=== PATIENT | female | born 1990 | race Caucasian/White ===

== ENCOUNTER → 2016-10-06 | Outpatient (REF) | payer OTHER | LOC: M SFHCWAGY 14:11 | PROVIDERS: ATTEND Nurse Practitioner Women's Health | DX: Z12.4 Encounter for screening for malignant neoplasm of cervix (principal); R87.612 Low grade squamous intraepithelial lesion on cytologic smear of cervix (LGSIL) ==

== ENCOUNTER → 2016-10-22 | Outpatient (CLI) | payer OTHER ==
[2016-10-22 17:43] LABS: ALBUMIN 3.9 GM/DL (3.2-5.2); ALBUMIN/GLOBULIN RATIO 1.44 (1.00-1.93); ALKALINE PHOSPHATASE 72 U/L (45-117); ALT/SGPT 17 U/L (12-78); ANION GAP 10 MEQ/L (8-16); AST/SGOT 11 U/L (15-37); BILIRUBIN,TOTAL 0.9 MG/DL (0.2-1.0); BLOOD UREA NITROGEN 14 MG/DL (7-18); CALCIUM LEVEL 8.2 MG/DL (8.5-10.1); CARBON DIOXIDE LEVEL 24 MEQ/L (21-32); CHLORIDE LEVEL 110 MEQ/L (98-107); CHOLESTEROL LEVEL 168 MG/DL (<200); CREATININE FOR GFR 0.94 MG/DL (0.55-1.02); GLOMERULAR FILTRATION RATE > 60.0 (>60); GLUCOSE, FASTING 92 MG/DL (70-105); MAGNESIUM LEVEL 2.3 MG/DL (1.8-2.4); POTASSIUM SERUM 3.9 MEQ/L (3.5-5.1); SODIUM LEVEL 144 MEQ/L (136-145); TOTAL PROTEIN 6.6 GM/DL (6.4-8.2); TRIGLYCERIDES LEVEL 69 MG/DL (<150)
[2016-10-23 11:15] LABS: FOLLICLE STIMULATING HORMONE 2.7 mIU/mL; LUTEINIZING HORMONE 4.6 mIU/mL
== END ==
LOC: M ADAMS 09:37
PROVIDERS: ATTEND Physician Assistant
DX: R03.0 Elevated blood-pressure reading, without diagnosis of hypertension (principal); L70.0 Acne vulgaris; Z68.29 Body mass index [BMI] 29.0-29.9, adult; E55.9 Vitamin D deficiency, unspecified

== ENCOUNTER → 2017-02-06 | Outpatient (CLI) | payer OTHER ==
--- NOTE | 2017-02-06 11:36 | REP ---
Clinical: Abnormal uterine bleeding. Comparison: 06/24/2010 . Technique: Transabdominal pelvic ultrasound followed by transvaginal examination for better evaluation of the endometrium and adnexa. Findings: Bladder is unremarkable and measures 11.4 x 10.4 x 7.8 cm . Normal anteverted uterus measures 8.2 x 3.4 x 5.4 centimeters. The endometrial complex measures 6 mm thickness and an 8 x 3 x 7 mm oval echogenic focus may represent endometrial polyp. Bilateral ovaries are normal in appearance. Right ovary measures 3.8 x 2.1 x 3.4 cm. Left ovary measures 3.6 x 1.2 x 2.8 cm. No pelvic fluid or adnexal mass lesion . Impression: 1. cannot exclude endometrial polyp. 2. Otherwise normal pelvic ultrasound. Signed by Roger Aparicio MD 02/06/2017 11:27 A
== END ==
LOC: M WHC 09:58
PROVIDERS: ATTEND Nurse Practitioner Women's Health
DX: N93.9 Abnormal uterine and vaginal bleeding, unspecified (principal)

== ENCOUNTER 2017-04-03 15:00 | Emergency (ER) | payer OTHER ==
[2017-04-03 17:37] LABS: D-DIMER QUANT 307.8 ng/ml (<500)
== END 2017-04-03 18:16 | disposition home or self-care (01) ==
LOC: M ED 15:00
DX: M54.12 Radiculopathy, cervical region (principal); R00.1 Bradycardia, unspecified; Z79.3 Long term (current) use of hormonal contraceptives
CPT/HCPCS: 93005

== ENCOUNTER 2017-04-27 10:44 | Day surgery (SDC) | payer OTHER ==
[2017-04-27 11:15] LABS: HEMATOCRIT 44.4 % (36.0-47.0); HEMOGLOBIN 15.3 g/dl (12.0-16.0); MEAN CORPUSCULAR HEMOGLOBIN 29.4 pg (27.0-33.0); MEAN CORPUSCULAR HGB CONC 34.5 g/dl (32.0-36.5); MEAN CORPUSCULAR VOLUME 85.4 fl (80.0-96.0); PLATELET COUNT, AUTOMATED 183 10^3/uL (150-450); RED CELL DISTRIBUTION WIDTH 12.5 % (11.5-14.5); WHITE BLOOD COUNT 6.1 10^3/uL (4.0-10.0)
[2017-04-27 11:23] LABS: CONTROL LINE HCG INT CTR LINE PRESENT; HCG, SERUM QUALITATIVE NEGATIVE (NEGATIVE)
[2017-04-27 11:32] LABS: ANION GAP 6 MEQ/L (8-16); BLOOD UREA NITROGEN 11 MG/DL (7-18); CALCIUM LEVEL 8.8 MG/DL (8.5-10.1); CARBON DIOXIDE LEVEL 29 MEQ/L (21-32); CHLORIDE LEVEL 106 MEQ/L (98-107); CREATININE FOR GFR 0.95 MG/DL (0.55-1.30); GLOMERULAR FILTRATION RATE > 60.0 (>60); GLUCOSE, FASTING 84 MG/DL (70-100); POTASSIUM SERUM 4.3 MEQ/L (3.5-5.1); SODIUM LEVEL 141 MEQ/L (136-145)
[2017-04-27] MEDS: LR 1,000 ML IV ×2 (11:34→15:00)
[2017-04-27] MEDS ORDERED: MIDAZOLAM INJ 2 MG/2 ML VIAL (J2250) As Ordered (12:27)
[2017-04-27] MEDS ORDERED: METOCLOPRAMIDE INJ 10MG/2ML VIAL (J2765) As Ordered ×2 (12:27→15:55)
[2017-04-27] MEDS ORDERED: fentaNYL 100 MCG/2 ML INJECTION (J3010) As Ordered (12:27)
[2017-04-27] MEDS ORDERED: PROPOFOL 200 MG/20 ML VIAL As Ordered (12:27)
[2017-04-27] MEDS ORDERED: LIDOCAINE 2% INJ 100 MG/5 ML SDV (FOR ANES.) As Ordered (12:27)
[2017-04-27] MEDS ORDERED: ONDANSETRON 4MG/2ML VIAL (J2405) As Ordered ×2 (12:27→14:00)
[2017-04-27] MEDS ORDERED: KETOROLAC 60 MG/2 ML VIAL (J1885) As Ordered (13:29)
[2017-04-27] MEDS ORDERED: NORCO, ANEXSIA 5/325MG TABLET (HYDROcodone/ACETAMINOPHEN) As Ordered (14:00)
[2017-04-27] MEDS: NORCO, ANEXSIA 5/325MG TABLET (HYDROcodone/ACETAMINOPHEN) PO ×2 (14:00→14:31)
[2017-04-27] MEDS: ONDANSETRON 4MG/2ML VIAL (J2405) IV (14:09)
[2017-04-27] MEDS ORDERED: PERCOCET 5MG/325MG TAB PO (14:15)
[2017-04-27] MEDS: METOCLOPRAMIDE INJ 10MG/2ML VIAL (J2765) IV ×2 (16:10→16:28)
[2017-04-27] MEDS ORDERED: KETOROLAC 30 MG/ML VIAL (J1885) IV (20:00)
== END 2017-04-27 16:30 | disposition home or self-care (01) ==
LOC: M SDC 10:44
DX: N92.6 Irregular menstruation, unspecified (principal); N84.0 Polyp of corpus uteri; I10 Essential (primary) hypertension; Z79.899 Other long term (current) drug therapy
CPT/HCPCS: 58558

== ENCOUNTER → 2018-03-10 | Outpatient (REF) | payer BC, OTHER ==
[~2018-03-10] MED LIST: CYCL10TA PO; METO1TAB32 PO; NIKK1TAB PO
== END ==
LOC: M LAB REF 09:40
PROVIDERS: ATTEND Physician Assistant Medical
DX: J02.9 Acute pharyngitis, unspecified (principal)

== ENCOUNTER → 2018-03-28 | Outpatient (REF) | payer BC ==
[2018-03-28 22:15] LABS: CHLAMYDIA DNA AMPLIFICATION NEGATIVE (NEGATIVE); GC DNA AMPLIFICATION NEGATIVE (NEGATIVE)
== END ==
LOC: M SFHCWAGY 15:14
PROVIDERS: ATTEND Nurse Practitioner Women's Health
DX: Z12.4 Encounter for screening for malignant neoplasm of cervix (principal); Z11.3 Encounter for screening for infections with a predominantly sexual mode of transmission; Z79.3 Long term (current) use of hormonal contraceptives
CPT/HCPCS: 87491; 87591; G0123

== ENCOUNTER → 2018-12-01 | Outpatient (REF) | payer BC | LOC: M LAB REF 08:46 | PROVIDERS: ATTEND Physician Assistant Medical | DX: J02.9 Acute pharyngitis, unspecified (principal) ==

== ENCOUNTER → 2019-01-26 | Outpatient (REF) | payer BC | LOC: M LAB REF 10:38 | PROVIDERS: ATTEND Physician Assistant Medical | DX: J02.9 Acute pharyngitis, unspecified (principal) ==

== ENCOUNTER → 2019-03-16 | Outpatient (CLI) | payer BC ==
[2019-03-16 19:04] LABS: BASO # 0.1 10^3/uL (0.0-0.2); BASO % 0.8 % (0.0-1.0); EOS # 0.1 10^3/uL (0.0-0.5); EOS % 1.9 % (0.0-3.0); HEMATOCRIT 44.1 % (36.0-47.0); HEMOGLOBIN 14.7 g/dl (12.0-15.5); LYMPH # 2.6 10^3/uL (1.5-5.0); LYMPH % 42.9 % (24.0-44.0); MEAN CORPUSCULAR HEMOGLOBIN 29.5 pg (27.0-33.0); MEAN CORPUSCULAR HGB CONC 33.3 g/dl (32.0-36.5); MEAN CORPUSCULAR VOLUME 88.4 fl (80.0-96.0); MONO # 0.4 10^3/uL (0.0-0.8); MONO % 6.9 % (0.0-5.0); NEUTROPHILS # 2.8 10^3/uL (1.5-8.5); NEUTROPHILS % 47.3 % (36.0-66.0); PLATELET COUNT, AUTOMATED 196 10^3/uL (150-450); RED BLOOD COUNT 4.99 10^6/uL (4.00-5.40); WHITE BLOOD COUNT 5.9 10^3/uL (4.0-10.0)
[2019-03-16 19:34] LABS: ALBUMIN 4.1 GM/DL (3.2-5.2); ALT/SGPT 21 U/L (12-78); AMYLASE 36 U/L (25-115); BILIRUBIN,TOTAL 0.8 MG/DL (0.2-1.0); BLOOD UREA NITROGEN 10 MG/DL (7-18); CALCIUM LEVEL 8.5 MG/DL (8.5-10.1); CARBON DIOXIDE LEVEL 24 MEQ/L (21-32); CHLORIDE LEVEL 109 MEQ/L (98-107); CREATININE FOR GFR 0.84 MG/DL (0.55-1.30); FREE T4 0.96 NG/DL (0.76-1.46); GLOMERULAR FILTRATION RATE > 60.0 (>60); GLUCOSE, FASTING 79 MG/DL (70-100); LIPASE 71 U/L (73-393); POTASSIUM SERUM 3.9 MEQ/L (3.5-5.1); SODIUM LEVEL 141 MEQ/L (136-145); TOTAL PROTEIN 7.5 GM/DL (6.4-8.2)
== END ==
LOC: M WUC 13:08
PROVIDERS: ATTEND Physician Assistant
DX: R10.9 Unspecified abdominal pain (principal); R19.7 Diarrhea, unspecified; R35.0 Frequency of micturition

== ENCOUNTER → 2019-03-28 | Outpatient (REF) | payer BC ==
[2019-03-28 19:56] LABS: BASO % 0.4 % (0.0-1.0); EOS # 0.1 10^3/uL (0.0-0.5); EOS % 1.2 % (0.0-3.0); HEMATOCRIT 43.4 % (36.0-47.0); HEMOGLOBIN 14.1 g/dl (12.0-15.5); LYMPH # 2.6 10^3/uL (1.5-5.0); MEAN CORPUSCULAR HEMOGLOBIN 29.3 pg (27.0-33.0); MEAN CORPUSCULAR HGB CONC 32.5 g/dl (32.0-36.5); MONO # 0.5 10^3/uL (0.0-0.8); MONO % 6.8 % (0.0-5.0); NEUTROPHILS # 3.5 10^3/uL (1.5-8.5); NEUTROPHILS % 52.3 % (36.0-66.0); PLATELET COUNT, AUTOMATED 191 10^3/uL (150-450); RED BLOOD COUNT 4.82 10^6/uL (4.00-5.40); WHITE BLOOD COUNT 6.8 10^3/uL (4.0-10.0)
[2019-03-28 20:20] LABS: ERYTHROCYTE SEDIMENTATION RATE 3 mm/hr (0-20)
== END ==
LOC: M SFHCADAM 15:23
PROVIDERS: ATTEND Physician Assistant
DX: A41.9 Sepsis, unspecified organism (principal); N30.00 Acute cystitis without hematuria

== ENCOUNTER → 2019-03-28 | Outpatient (REF) | payer BC ==
[2019-03-28 20:12] LABS: FREE T4 0.78 NG/DL (0.76-1.46)
[2019-03-28 20:14] LABS: THYROID PEROXIDASE ANTIBODY > 1300.0 U/ML (<60.0)
== END ==
LOC: M LABDRWAD 19:21
PROVIDERS: ATTEND Internal Medicine Endocrinology, Diabetes & Metabolism
DX: E03.9 Hypothyroidism, unspecified (principal)

== ENCOUNTER → 2019-05-27 | Outpatient (REF) | payer BC ==
[2019-05-27 18:07] LABS: APPEARANCE, URINE CLEAR (CLEAR); BACTERIA, URINE AUTO NEGATIVE (NEGATIVE); BILIRUBIN, URINE AUTO NEGATIVE (NEGATIVE); BLOOD, URINE BLOOD NEGATIVE (NEGATIVE); COLOR, URINE YELLOW (YELLOW); GLUCOSE, URINE (UA) AUTO NEGATIVE (NEGATIVE); KETONE, URINE AUTO TRACE mg/dL (NEGATIVE); LEUKOCYTE ESTERASE, URINE AUTO NEGATIVE (NEGATIVE); MUCUS, URINE SMALL (NEGATIVE); NITRITE, URINE AUTO NEGATIVE (NEGATIVE); PROTEIN, URINE AUTO NEGATIVE (NEGATIVE); RBC, URINE AUTO 1 /HPF (0-3); SPECIFIC GRAVITY URINE AUTO 1.015 (1.002-1.035); SQUAMOUS EPITHELIAL CELL UR AU 3 /HPF (0-6); UROBILINOGEN, URINE AUTO 0.2 mg/dL (0.0-2.0); WBC, URINE AUTO 1 /HPF (0-3)
== END ==
LOC: M PLALAB 15:03
PROVIDERS: ATTEND Obstetrics & Gynecology
DX: N30.00 Acute cystitis without hematuria (principal)

== ENCOUNTER → 2019-06-02 | Outpatient (REF) | payer BC | LOC: M SFHCWAGY 17:15 | PROVIDERS: ATTEND Obstetrics & Gynecology | DX: N30.00 Acute cystitis without hematuria (principal) ==

== ENCOUNTER → 2019-06-02 | Outpatient (CLI) | payer BC ==
[2019-06-02 18:27] LABS: FREE T4 1.41 NG/DL (0.76-1.46); THYROID STIMULATING HORMONE 0.028 uIU/ML (0.358-3.740)
== END ==
LOC: M PLALAB 15:27
PROVIDERS: ATTEND Internal Medicine Endocrinology, Diabetes & Metabolism
DX: E03.9 Hypothyroidism, unspecified (principal)

== ENCOUNTER → 2019-08-18 | Outpatient (CLI) | payer BC ==
[~2019-08-18] MED LIST changes: +CYCL-707 PO; -CYCL10TA PO
--- NOTE | 2019-08-20 06:21 | REP ---
Clinical: Abnormal menstrual cycles. Technique: Transabdominal pelvic ultrasound followed by transvaginal examination for better evaluation of the endometrium and adnexa. Findings: Bladder is normal and measures 9.6 x 9.3 x 6.5 cm. Normal anteverted uterus measures 7.1 x 3.5 x 4.7 cm. Endometrial complex measures 5 mm thickness. No discrete uterine or endometrial abnormalities are identified. The bilateral ovaries are normal in appearance and vascularity. Right ovary measures 3.4 x 2.1 x 2.4 cm. Left ovary measures 3.6 x 1.5 x 2.5 cm. No pelvic free fluid or adnexal mass lesion. Impression: Normal pelvic ultrasound.
== END ==
LOC: M WHC 07:00
PROVIDERS: ATTEND Nurse Practitioner Women's Health
DX: N92.1 Excessive and frequent menstruation with irregular cycle (principal); N94.6 Dysmenorrhea, unspecified

== ENCOUNTER → 2019-08-27 | Outpatient (REF) | payer BC | LOC: M LAB REF 17:52 | PROVIDERS: ATTEND Dermatology | DX: L92.9 Granulomatous disorder of the skin and subcutaneous tissue, unspecified (principal) ==

== ENCOUNTER → 2019-09-04 | Outpatient (CLI) | payer BC ==
[2019-09-04 12:38] LABS: FREE T4 1.13 NG/DL (0.76-1.46); THYROID STIMULATING HORMONE 6.39 uIU/ML (0.358-3.740)
== END ==
LOC: M LAB 11:23
PROVIDERS: ATTEND Internal Medicine Endocrinology, Diabetes & Metabolism
DX: E03.9 Hypothyroidism, unspecified (principal)

== ENCOUNTER → 2019-12-04 | Outpatient (CLI) | payer BC ==
[2019-12-04 09:46] LABS: FREE T4 1.37 NG/DL (0.76-1.46); THYROID STIMULATING HORMONE 1.09 uIU/ML (0.358-3.740)
== END ==
LOC: M LAB 08:27
PROVIDERS: ATTEND Nurse Practitioner Family
DX: E06.3 Autoimmune thyroiditis (principal)

== ENCOUNTER → 2020-03-09 | Outpatient (REF) | payer BC ==
[2020-03-09 16:57] LABS: ALBUMIN 3.3 GM/DL (3.2-5.2); ALT/SGPT 15 U/L (12-78); BILIRUBIN,TOTAL 0.3 MG/DL (0.2-1.0); BLOOD UREA NITROGEN 10 MG/DL (7-18); CALCIUM LEVEL 8.5 MG/DL (8.5-10.1); CARBON DIOXIDE LEVEL 27 MEQ/L (21-32); CHLORIDE LEVEL 108 MEQ/L (98-107); CREATININE FOR GFR 0.83 MG/DL (0.55-1.30); GLOMERULAR FILTRATION RATE > 60.0 (>60); GLUCOSE, FASTING 100 MG/DL (70-100); POTASSIUM SERUM 4.1 MEQ/L (3.5-5.1); SODIUM LEVEL 141 MEQ/L (136-145); TOTAL 25(OH) VITAMIN D 19.5 NG/ML (30.0-100.0); TOTAL PROTEIN 6.4 GM/DL (6.4-8.2)
== END ==
LOC: M SFHCADAM 13:45
PROVIDERS: ATTEND Physician Assistant
DX: E03.9 Hypothyroidism, unspecified (principal); I10 Essential (primary) hypertension; E55.9 Vitamin D deficiency, unspecified

== ENCOUNTER → 2020-04-01 | Outpatient (REF) | payer BC ==
[2020-04-01 17:29] LABS: FREE T4 1.31 NG/DL (0.76-1.46); THYROID STIMULATING HORMONE 1.59 uIU/ML (0.358-3.740)
== END ==
LOC: M LABDRWAD 16:16
PROVIDERS: ATTEND Nurse Practitioner Family
DX: E06.3 Autoimmune thyroiditis (principal)

== ENCOUNTER → 2020-04-13 | Outpatient (REF) | payer BC | LOC: M SFHCWAGY 17:19 | PROVIDERS: ATTEND Nurse Practitioner Women's Health | DX: Z12.4 Encounter for screening for malignant neoplasm of cervix (principal); Z01.419 Encounter for gynecological examination (general) (routine) without abnormal findings ==

== ENCOUNTER → 2020-06-10 | Outpatient (CLI) | payer BC ==
--- NOTE | 2020-06-15 10:55 | REP ---
INDICATION: N93.9 ABNORMAL UTERINE BLEEDING COMPARISON: 08/18/2019 TECHNIQUE: Transabdominal pelvic ultrasound followed by transvaginal examination for better evaluation of the endometrium and adnexa with color Doppler evaluation of the ovaries. FINDINGS: Bladder is under distended. Normal anteverted uterus measures 7.0 x 3.9 x 4.1. The endometrial complex measures 4.0 mm thickness. No discrete uterine or endometrial abnormalities are appreciated. Bilateral ovaries are normal in appearance and vascularity without evidence for torsion. Right ovary measures 2.5 x 1.6 x 1.9 cm; R I = 0.60. Left ovary measures 2.4 x 1.2 x 1.2 cm; R I = (flow detected). No pelvic fluid or adnexal mass lesion. IMPRESSION: Normal pelvic ultrasound. <Electronically signed by Roger Aparicio > 06/15/20 [id number]
== END ==
LOC: M WHC 15:01
PROVIDERS: ATTEND Nurse Practitioner Women's Health
DX: N93.9 Abnormal uterine and vaginal bleeding, unspecified (principal)

== ENCOUNTER → 2020-08-31 | Outpatient (REF) | payer BC ==
[2020-08-31 20:13] LABS: BLOOD UREA NITROGEN 11 MG/DL (7-18); CALCIUM LEVEL 8.9 MG/DL (8.5-10.1); CARBON DIOXIDE LEVEL 27 MEQ/L (21-32); CHLORIDE LEVEL 108 MEQ/L (98-107); CREATININE FOR GFR 0.79 MG/DL (0.55-1.30); GLOMERULAR FILTRATION RATE > 60.0 (>60); GLUCOSE, FASTING 88 MG/DL (70-100); POTASSIUM SERUM 3.8 MEQ/L (3.5-5.1); SODIUM LEVEL 140 MEQ/L (136-145)
== END ==
LOC: M SFHCADAM 14:50
PROVIDERS: ATTEND Physician Assistant
DX: E03.9 Hypothyroidism, unspecified (principal); I83.812 Varicose veins of left lower extremity with pain

== ENCOUNTER 2020-09-07 08:24 | Emergency (ER) | payer BC ==
[~2020-09-07] VITALS: Ht 165.1 cm; Wt 87.5 kg
[2020-09-07] MEDS ORDERED: METO1TAB7 PO (08:33)
[2020-09-07] MEDS ORDERED: LEVO100T5 PO (08:33)
[2020-09-07] MEDS ORDERED: LOSA50TA88 PO (08:33)
--- NOTE | 2020-09-07 09:50 | REP ---
INDICATION: swelling pain LLE, multiple bulging veins COMPARISON: None. TECHNIQUE: Sawyer scale and color Doppler evaluation using linear high frequency transducer. FINDINGS: Ultrasound examination of the left lower extremity deep venous structures from the common femoral vein through the calf/ankle to include the peroneal, and tibial veins demonstrates normal compressibility flow and wave patterns in response to respiration and augmentation. There is no evidence for deep venous thrombosis. Contralateral CFV is patent and normal. Area of maximal swelling and erythema along the lower portion of the left leg demonstrates noncompressible varicose veins suggesting superficial thrombophlebitis. Correlation is recommended. IMPRESSION: No evidence for deep venous thrombosis. Cannot exclude superficial thrombophlebitis. <Electronically signed by Roger Aparicio > 09/07/20 [id number]
[2020-09-07 10:56] VITALS: BP 141/97
== END 2020-09-07 10:57 | disposition home or self-care (01) ==
LOC: M ED 08:24
DX: I83.813 Varicose veins of bilateral lower extremities with pain (principal); I80.02 Phlebitis and thrombophlebitis of superficial vessels of left lower extremity; I10 Essential (primary) hypertension; E78.5 Hyperlipidemia, unspecified; E06.9 Thyroiditis, unspecified; Z79.3 Long term (current) use of hormonal contraceptives

== ENCOUNTER → 2020-09-23 | Outpatient (CLI) | payer BC ==
[~2020-09-23] MED LIST changes: +LEVO100T5 PO; +LOSA50TA88 PO; +METO1TAB7 PO
[2020-09-23 08:45] LABS: FREE T4 1.31 NG/DL (0.76-1.46); THYROID STIMULATING HORMONE 2.38 uIU/ML (0.358-3.740)
== END ==
LOC: M LAB 07:54
PROVIDERS: ATTEND Nurse Practitioner Family
DX: E06.3 Autoimmune thyroiditis (principal)

== ENCOUNTER → 2021-01-27 | Outpatient (REF) ==
[2021-01-27 10:57] LABS: RSV AMPLIFICATION NEGATIVE (NEGATIVE)
== END ==
LOC: M EMP 08:36
PROVIDERS: ATTEND Family Medicine
DX: Z20.828 Contact with and (suspected) exposure to other viral communicable diseases (principal)

== ENCOUNTER → 2021-02-23 | Outpatient (REF) | LOC: M LABSMTC 10:12 | PROVIDERS: ATTEND Pediatrics | DX: Z20.828 Contact with and (suspected) exposure to other viral communicable diseases (principal) ==

== ENCOUNTER → 2021-03-08 | Outpatient (REF) | payer BC ==
[~2021-03-08] MED LIST changes: +LOSA50TA28 PO; -LOSA50TA88 PO
[2021-03-08 18:41] LABS: ALBUMIN 4.4 GM/DL (3.2-5.2); ALT/SGPT 50 U/L (12-78); BILIRUBIN,TOTAL 0.3 MG/DL (0.2-1.0); BLOOD UREA NITROGEN 14 MG/DL (7-18); CALCIUM LEVEL 9.4 MG/DL (8.5-10.1); CARBON DIOXIDE LEVEL 30 MEQ/L (21-32); CHLORIDE LEVEL 105 MEQ/L (98-107); CREATININE FOR GFR 0.86 MG/DL (0.55-1.30); FREE T4 1.22 NG/DL (0.76-1.46); GLOMERULAR FILTRATION RATE > 60.0 (>60); GLUCOSE, FASTING 89 MG/DL (70-100); HCG, SERUM QUANTITATIVE < 1.0 MIU/ML; POTASSIUM SERUM 4.4 MEQ/L (3.5-5.1); SODIUM LEVEL 140 MEQ/L (136-145); TOTAL PROTEIN 7.6 GM/DL (6.4-8.2); TOTAL T3 100.8 NG/DL (60.0-181.0)
[2021-03-08 18:53] LABS: TOTAL 25(OH) VITAMIN D 32.8 NG/ML (30.0-100.0)
== END ==
LOC: M SFHCADAM 15:49
PROVIDERS: ATTEND Physician Assistant
DX: I10 Essential (primary) hypertension (principal); E03.9 Hypothyroidism, unspecified; E55.9 Vitamin D deficiency, unspecified; N91.0 Primary amenorrhea; R00.2 Palpitations

== ENCOUNTER → 2021-03-24 | Outpatient (REF) | LOC: M EMP 08:17 | PROVIDERS: ATTEND Family Medicine | DX: Z11.52 Encounter for screening for COVID-19 (principal) ==

== ENCOUNTER → 2021-04-11 | Outpatient (CLI) | payer BC ==
[2021-04-11 10:56] LABS: FREE T4 1.17 NG/DL (0.76-1.46); THYROID STIMULATING HORMONE 0.484 uIU/ML (0.358-3.740)
== END ==
LOC: M LAB 08:35
PROVIDERS: ATTEND Nurse Practitioner Family
DX: E06.3 Autoimmune thyroiditis (principal)

== ENCOUNTER → 2021-06-02 | Outpatient (CLI) | payer BC ==
[2021-06-02 12:44] LABS: FREE T4 1.18 NG/DL (0.76-1.46); HCG, SERUM QUANTITATIVE < 1.0 MIU/ML
[2021-06-02 12:46] LABS: LUTEINIZING HORMONE 3.5 mIU/mL; PROGESTERONE 1.93 NG/ML; PROLACTIN 9.9 NG/ML
[2021-06-02 12:47] LABS: ESTRADIOL 64.7 PG/ML; FOLLICLE STIMULATING HORMONE 5.9 mIU/mL
== END ==
LOC: M WUC 10:01
PROVIDERS: ATTEND Obstetrics & Gynecology
DX: N93.9 Abnormal uterine and vaginal bleeding, unspecified (principal)

== ENCOUNTER → 2021-09-02 | Outpatient (CLI) | payer BC | LOC: M LAB 08:35 | PROVIDERS: ATTEND Obstetrics & Gynecology | DX: Z32.00 Encounter for pregnancy test, result unknown (principal) ==

== ENCOUNTER → 2021-09-19 | Outpatient (REF) | LOC: M EMP 07:45 | PROVIDERS: ATTEND Family Medicine | DX: Z11.52 Encounter for screening for COVID-19 (principal) ==

== ENCOUNTER → 2021-10-13 | Outpatient (CLI) | payer BC ==
[2021-10-13 14:36] LABS: FREE T4 2.02 NG/DL (0.76-1.46); THYROID STIMULATING HORMONE < 0.005 uIU/ML (0.358-3.740)
== END ==
LOC: M LAB 12:01
PROVIDERS: ATTEND Nurse Practitioner Family
DX: E06.3 Autoimmune thyroiditis (principal)

== ENCOUNTER → 2021-10-31 | Outpatient (CLI) | payer SELFPAY | LOC: M LAB 10:52 | DX: Z32.00 Encounter for pregnancy test, result unknown (principal) ==

== ENCOUNTER → 2021-11-28 | Outpatient (CLI) | payer BC | LOC: M LAB 11:47 | DX: Z32.00 Encounter for pregnancy test, result unknown (principal) ==

== ENCOUNTER → 2021-12-26 | Outpatient (CLI) | payer BC | LOC: M LAB 07:30 | DX: Z32.00 Encounter for pregnancy test, result unknown (principal) ==

== ENCOUNTER → 2022-01-17 | Outpatient (CLI) | payer BC ==
[2022-01-17 14:38] LABS: FREE T4 1.34 NG/DL (0.76-1.46); THYROID STIMULATING HORMONE 0.046 uIU/ML (0.358-3.740)
== END ==
LOC: M LAB 11:00
PROVIDERS: ATTEND Nurse Practitioner Family
DX: E06.3 Autoimmune thyroiditis (principal)

== ENCOUNTER → 2022-02-20 | Outpatient (CLI) | payer BC | LOC: M LAB 06:45 | DX: Z32.00 Encounter for pregnancy test, result unknown (principal) ==

== ENCOUNTER → 2022-03-03 | Outpatient (REF) ==
[2022-03-03 10:33] LABS: RSV AMPLIFICATION NEGATIVE (NEGATIVE)
== END ==
LOC: M EMP 09:13
PROVIDERS: ATTEND Family Medicine
DX: Z20.818 Contact with and (suspected) exposure to other bacterial communicable diseases (principal)

== ENCOUNTER → 2022-03-08 | Outpatient (REF) | LOC: M EMP 03-07 10:05 | PROVIDERS: ATTEND Family Medicine | DX: Z11.52 Encounter for screening for COVID-19 (principal) ==

== ENCOUNTER → 2022-03-20 | Outpatient (CLI) | payer BC | LOC: M PLALAB 08:29 | DX: Z32.00 Encounter for pregnancy test, result unknown (principal) ==

== ENCOUNTER → 2022-04-21 | Outpatient (CLI) | payer BC | LOC: M LAB 07:09 | DX: Z32.00 Encounter for pregnancy test, result unknown (principal) ==

== ENCOUNTER → 2022-05-19 | Outpatient (CLI) | payer BC | LOC: M LAB 07:33 | DX: Z32.00 Encounter for pregnancy test, result unknown (principal) ==

== ENCOUNTER → 2022-06-06 | Outpatient (REF) ==
[2022-06-06 11:09] LABS: RSV AMPLIFICATION NEGATIVE (NEGATIVE)
== END ==
LOC: M EMP 08:17
PROVIDERS: ATTEND Family Medicine
DX: Z11.59 Encounter for screening for other viral diseases (principal)

== ENCOUNTER → 2022-08-23 | Outpatient (CLI) | payer BC ==
[2022-08-23 13:47] LABS: FREE T4 1.22 NG/DL (0.89-1.76)
[2022-08-23 13:48] LABS: THYROID STIMULATING HORMONE 1.848 uIU/ML (0.55-4.78)
== END ==
LOC: M LAB 12:15
PROVIDERS: ATTEND Physician Assistant
DX: E06.3 Autoimmune thyroiditis (principal)

== ENCOUNTER → 2022-09-06 | Outpatient (CLI) | payer BC ==
[2022-09-06 09:07] LABS: BASO % 0.5 % (0.0-1.0); EOS # 0.1 10^3/uL (0.0-0.5); EOS % 1.5 % (0.0-3.0); HEMATOCRIT 43.3 % (36.0-47.0); HEMOGLOBIN 14.6 g/dl (12.0-15.5); LYMPH # 2.4 10^3/uL (1.5-5.0); LYMPH % 44.3 % (24.0-44.0); MEAN CORPUSCULAR HGB CONC 33.7 g/dl (32.0-36.5); MEAN CORPUSCULAR VOLUME 86.1 fl (80.0-96.0); MONO # 0.4 10^3/uL (0.0-0.8); MONO % 7.5 % (2.0-8.0); NEUTROPHILS # 2.5 10^3/uL (1.5-8.5); NEUTROPHILS % 45.8 % (36.0-66.0); PLATELET COUNT, AUTOMATED 176 10^3/uL (150-450); RED BLOOD COUNT 5.03 10^6/uL (4.00-5.40); WHITE BLOOD COUNT 5.5 10^3/uL (4.0-10.0)
== END ==
LOC: M LAB 08:26
PROVIDERS: ATTEND Physician Assistant
DX: R00.2 Palpitations (principal); I10 Essential (primary) hypertension

== ENCOUNTER → 2022-09-22 | Outpatient (CLI) | payer BC | LOC: M RAD 08:28 | PROVIDERS: ATTEND Physician Assistant | DX: R00.2 Palpitations (principal); I10 Essential (primary) hypertension ==

== ENCOUNTER → 2022-10-23 | Outpatient (CLI) | payer BC | LOC: M CARPUL 10:02 | PROVIDERS: ATTEND Physician Assistant | DX: I10 Essential (primary) hypertension (principal) ==

== ENCOUNTER → 2022-10-25 | Outpatient (CLI) | payer BC ==
[2022-10-25 08:23] LABS: FREE T4 1.06 NG/DL (0.89-1.76)
[2022-10-25 08:24] LABS: THYROID STIMULATING HORMONE 4.007 uIU/ML (0.55-4.78)
== END ==
LOC: M LAB 07:04
PROVIDERS: ATTEND Nurse Practitioner Family
DX: E06.3 Autoimmune thyroiditis (principal)

== ENCOUNTER → 2022-11-16 | Outpatient (CLI) | payer BC | LOC: M LAB 06:12 | PROVIDERS: ATTEND Nurse Practitioner Family | DX: I10 Essential (primary) hypertension (principal) ==

== ENCOUNTER → 2022-12-26 | Outpatient (CLI) | payer BC ==
[2022-12-26 11:16] LABS: THYROID STIMULATING HORMONE 0.085 uIU/ML (0.55-4.78)
[2022-12-26 11:17] LABS: FREE T4 1.4 NG/DL (0.89-1.76)
== END ==
LOC: M LAB 10:18
PROVIDERS: ATTEND Nurse Practitioner Family
DX: E06.3 Autoimmune thyroiditis (principal)

== ENCOUNTER → 2022-12-27 | Outpatient (REF) | payer BC ==
[2022-12-27 13:02] LABS: APPEARANCE, URINE HAZY (CLEAR); BACTERIA, URINE AUTO 2+ (NEGATIVE); BILIRUBIN, URINE AUTO NEGATIVE (NEGATIVE); BLOOD, URINE BLOOD NEGATIVE (NEGATIVE); COLOR, URINE YELLOW (YELLOW); GLUCOSE, URINE (UA) AUTO NEGATIVE (NEGATIVE); KETONE, URINE AUTO NEGATIVE (NEGATIVE); LEUKOCYTE ESTERASE, URINE AUTO 3+ (NEGATIVE); MUCUS, URINE SMALL (NEGATIVE); NITRITE, URINE AUTO NEGATIVE (NEGATIVE); PROTEIN, URINE AUTO NEGATIVE (NEGATIVE); RBC, URINE AUTO 0 /HPF (0-3); SPECIFIC GRAVITY URINE AUTO 1.005 (1.002-1.035); SQUAMOUS EPITHELIAL CELL UR AU 2 /HPF (0-6); UROBILINOGEN, URINE AUTO 0.2 mg/dL (0.0-2.0); WBC, URINE AUTO 128 /HPF (0-3)
== END ==
LOC: M SFHCADAM 11:42
PROVIDERS: ATTEND Physician Assistant
DX: R30.0 Dysuria (principal)

== ENCOUNTER → 2023-03-15 | Outpatient (REF) ==
[2023-03-15 13:21] LABS: RSV AMPLIFICATION NEGATIVE (NEGATIVE)
== END ==
LOC: M EMP 11:39
PROVIDERS: ATTEND Family Medicine
DX: Z11.59 Encounter for screening for other viral diseases (principal)

== ENCOUNTER → 2023-03-27 | Outpatient (CLI) | payer BC ==
[2023-03-27 11:05] LABS: FREE T4 1.55 NG/DL (0.89-1.76); THYROID STIMULATING HORMONE 0.163 uIU/ML (0.55-4.78)
== END ==
LOC: M LAB 09:35
PROVIDERS: ATTEND Nurse Practitioner Family
DX: E06.3 Autoimmune thyroiditis (principal)

== ENCOUNTER → 2023-05-21 | Outpatient (REF) | payer BC ==
[2023-05-21 14:05] LABS: APPEARANCE, URINE HAZY (CLEAR); BACTERIA, URINE AUTO 3+ (NEGATIVE); BILIRUBIN, URINE AUTO NEGATIVE (NEGATIVE); BLOOD, URINE BLOOD NEGATIVE (NEGATIVE); COLOR, URINE YELLOW (YELLOW); GLUCOSE, URINE (UA) AUTO NEGATIVE (NEGATIVE); KETONE, URINE AUTO NEGATIVE (NEGATIVE); LEUKOCYTE ESTERASE, URINE AUTO 3+ (NEGATIVE); MUCUS, URINE SMALL (NEGATIVE); NITRITE, URINE AUTO NEGATIVE (NEGATIVE); PROTEIN, URINE AUTO NEGATIVE (NEGATIVE); RBC, URINE AUTO 2 /HPF (0-3); SPECIFIC GRAVITY URINE AUTO 1.003 (1.002-1.035); SQUAMOUS EPITHELIAL CELL UR AU 2 /HPF (0-6); UROBILINOGEN, URINE AUTO 0.2 mg/dL (0.0-2.0); WBC, URINE AUTO 55 /HPF (0-3)
== END ==
LOC: M SFHCADAM 13:26
PROVIDERS: ATTEND Physician Assistant Medical
DX: R30.0 Dysuria (principal); B96.1 Klebsiella pneumoniae [K. pneumoniae] as the cause of diseases classified elsewhere

== ENCOUNTER → 2023-06-20 | Outpatient (CLI) | payer BC ==
[2023-06-20 08:23] LABS: FREE T4 1.42 NG/DL (0.89-1.76); THYROID STIMULATING HORMONE 0.495 uIU/ML (0.55-4.78)
== END ==
LOC: M LAB 07:04
PROVIDERS: ATTEND Nurse Practitioner Family
DX: E06.3 Autoimmune thyroiditis (principal)

== ENCOUNTER → 2023-07-25 | Outpatient (REF) | payer BC | LOC: M SFHCADAM 12:29 | PROVIDERS: ATTEND Physician Assistant | DX: N39.0 Urinary tract infection, site not specified (principal) ==

== ENCOUNTER 2023-08-11 16:52 | Emergency (ER) | payer OTHER, BC ==
[~2023-08-11] VITALS: Ht 165.1 cm; Wt 82.8 kg
[2023-08-11] MEDS ORDERED: LEVO125T4 (17:03)
[2023-08-11] MEDS ORDERED: OXYB5TAB14 (17:03)
[2023-08-11] MEDS ORDERED: METF10004 (17:03)
[2023-08-11] MEDS ORDERED: LABE100T6 PO (17:03)
[2023-08-11] MEDS: ONDANSETRON 4MG ORAL DISINTEGRATING TAB PO ONE (17:54)
[2023-08-11] MEDS ORDERED: ONDA-282 PO (18:54)
[2023-08-11 19:05] VITALS: BP 158/94; TEMP 98.2; O2SAT 100
== END 2023-08-11 19:09 | disposition home or self-care (01) ==
LOC: M ED 16:52
DX: S20.20XA Contusion of thorax, unspecified, initial encounter (principal); S16.1XXA Strain of muscle, fascia and tendon at neck level, initial encounter; V49.49XA Driver injured in collision with other motor vehicles in traffic accident, initial encounter; Y92.410 Unspecified street and highway as the place of occurrence of the external cause; Y93.9 Activity, unspecified; Y99.9 Unspecified external cause status

== ENCOUNTER → 2023-11-06 | Outpatient (REF) ==
[~2023-11-06] MED LIST changes: +LABE100T6 PO; +LEVO125T4; +METF10004; +ONDA-282 PO; +OXYB5TAB14
== END ==
LOC: M EMP 17:15
PROVIDERS: ATTEND Family Medicine
DX: Z11.52 Encounter for screening for COVID-19 (principal)

== ENCOUNTER → 2023-12-06 | Outpatient (CLI) | payer OTHER, BC ==
[2023-12-06 16:22] LABS: FREE T4 1.25 NG/DL (0.89-1.76)
[2023-12-06 16:23] LABS: THYROID STIMULATING HORMONE 4.104 uIU/ML (0.55-4.78)
== END ==
LOC: M LAB 15:26
PROVIDERS: ATTEND Nurse Practitioner Family
DX: E06.3 Autoimmune thyroiditis (principal)

== ENCOUNTER → 2023-12-14 | Outpatient (CLI) | payer BC | LOC: M PLALAB 14:26 | PROVIDERS: ATTEND Obstetrics & Gynecology | DX: Z67.91 Unspecified blood type, Rh negative (principal) | CPT/HCPCS: 36415; 86850; 86900; 86901; J2790 ==

== ENCOUNTER → 2024-01-07 | Outpatient (CLI) | payer BC ==
[2024-01-07 18:07] LABS: THYROID STIMULATING HORMONE 0.449 uIU/ML (0.55-4.78)
[2024-01-07 18:08] LABS: FREE T4 1.44 NG/DL (0.89-1.76)
== END ==
LOC: M PLALAB 15:52
PROVIDERS: ATTEND Nurse Practitioner Family
DX: E06.3 Autoimmune thyroiditis (principal)

== ENCOUNTER → 2024-03-24 | Outpatient (CLI) | payer BC | LOC: M LAB 10:25 | PROVIDERS: ATTEND Obstetrics & Gynecology Reproductive Endocrinology | DX: Z13.29 Encounter for screening for other suspected endocrine disorder (principal) ==

== ENCOUNTER 2024-06-11 15:30 | Emergency (ER) | payer BC ==
[~2024-06-11] VITALS: Ht 165.1 cm; Wt 86.5 kg
[2024-06-11 16:04] LABS: BASO % 0.4 % (0.0-1.0); EOS # 0.1 10^3/uL (0.0-0.5); EOS % 0.7 % (0.0-3.0); HEMATOCRIT 41.7 % (36.0-47.0); HEMOGLOBIN 14.2 g/dl (12.0-15.5); LYMPH # 2.6 10^3/uL (1.5-5.0); LYMPH % 34.5 % (24.0-44.0); MEAN CORPUSCULAR HEMOGLOBIN 29.2 pg (27.0-33.0); MEAN CORPUSCULAR HGB CONC 34.1 g/dl (32.0-36.5); MEAN CORPUSCULAR VOLUME 85.6 fl (80.0-96.0); MONO # 0.5 10^3/uL (0.0-0.8); MONO % 6.3 % (2.0-8.0); NEUTROPHILS # 4.4 10^3/uL (1.5-8.5); NEUTROPHILS % 57.8 % (36.0-66.0); PLATELET COUNT, AUTOMATED 195 10^3/uL (150-450); RED BLOOD COUNT 4.87 10^6/uL (4.00-5.40); WHITE BLOOD COUNT 7.6 10^3/uL (4.0-10.0)
[2024-06-11] MEDS: RHOGAM 300MCG (1500IU) INJ IM ONE (19:52)
[2024-06-11 20:18] VITALS: BP 158/96; TEMP 98.6; O2SAT 98
== END 2024-06-11 20:21 | disposition home or self-care (01) ==
LOC: M ED 15:30
DX: O20.9 Hemorrhage in early pregnancy, unspecified (principal); O36.0111 Maternal care for anti-D [Rh] antibodies, first trimester, fetus 1; Z29.13 Encounter for prophylactic Rho(D) immune globulin; E28.2 Polycystic ovarian syndrome; Z3A.01 Less than 8 weeks gestation of pregnancy; Z79.818 Long term (current) use of other agents affecting estrogen receptors and estrogen levels; Z79.899 Other long term (current) drug therapy; Z79.890 Hormone replacement therapy; Z79.84 Long term (current) use of oral hypoglycemic drugs
CPT/HCPCS: 84702; 85025; 86850; 86900; 86901; 99283; J2790

== ENCOUNTER → 2024-07-15 | Outpatient (CLI) | payer BC ==
[2024-07-15 15:14] LABS: HEMATOCRIT 41.5 % (36.0-47.0); HEMOGLOBIN 14.2 g/dl (12.0-15.5); MEAN CORPUSCULAR HEMOGLOBIN 29.6 pg (27.0-33.0); MEAN CORPUSCULAR HGB CONC 34.2 g/dl (32.0-36.5); MEAN CORPUSCULAR VOLUME 86.5 fl (80.0-96.0); PLATELET COUNT, AUTOMATED 179 10^3/uL (150-450); WHITE BLOOD COUNT 7.7 10^3/uL (4.0-10.0)
[2024-07-15 15:25] LABS: URIC ACID 3.9 MG/DL (3.1-7.8)
[2024-07-15 15:28] LABS: ALT/SGPT 13 U/L (7.0-40); AST/SGOT 9 U/L (<34); BILIRUBIN,TOTAL 0.4 MG/DL (0.3-1.2); GLOMERULAR FILTRATION RATE > 90.0 (>60); LDH LACTATE DEHYDROGENASE 155 U/L (120-246)
[2024-07-15 15:48] LABS: CREATININE,RANDOM URINE 64.5 MG/DL
[2024-07-15 15:50] LABS: TOTAL PROTEIN,RANDOM URINE < 6.0 MG/DL (0.0-14.0)
[2024-07-15 15:56] LABS: HIV 1&2 SCREEN NEGATIVE (NEGATIVE)
[2024-07-15 16:04] LABS: HEPATITIS C VIRUS ABY INDEX < 0.02 INDEX (<0.8)
[2024-07-15 16:16] LABS: Trichomonas vaginalis (AMP) NOT DETECTED (NEGATIVE)
[2024-07-15 16:40] LABS: GC DNA AMPLIFICATION NEGATIVE (NEGATIVE)
== END ==
LOC: M PLALAB 12:43
PROVIDERS: ATTEND Obstetrics & Gynecology
DX: O09.811 Supervision of pregnancy resulting from assisted reproductive technology, first trimester (principal); Z3A.00 Weeks of gestation of pregnancy not specified

== ENCOUNTER → 2024-07-18 | Outpatient (CLI) | payer BC ==
[2024-07-18 12:05] LABS: THYROID STIMULATING HORMONE 1.073 uIU/ML (0.55-4.78)
[2024-07-18 12:07] LABS: FREE T4 1.51 NG/DL (0.89-1.76)
== END ==
LOC: M LAB 10:05
PROVIDERS: ATTEND Nurse Practitioner Family
DX: E06.3 Autoimmune thyroiditis (principal)

== ENCOUNTER → 2024-09-02 | Outpatient (CLI) | payer BC ==
[~2024-09-02] MED LIST changes: +ASPI81CH33 PO; +FAMO20TA PO; +FAMO40TA3 PO; +LABE20TAB PO; +LEVO50TA5 PO; +PREN1CHW6 PO
== END ==
LOC: M WHC 07:02
PROVIDERS: ATTEND Nurse Practitioner Family
DX: O10.012 Pre-existing essential hypertension complicating pregnancy, second trimester (principal); O09.812 Supervision of pregnancy resulting from assisted reproductive technology, second trimester; O09.292 Supervision of pregnancy with other poor reproductive or obstetric history, second trimester; O99.282 Endocrine, nutritional and metabolic diseases complicating pregnancy, second trimester; E03.9 Hypothyroidism, unspecified; Z3A.18 18 weeks gestation of pregnancy

== ENCOUNTER → 2024-09-18 | Outpatient (CLI) | payer BC ==
[~2024-09-18] MED LIST changes: -ASPI81CH33 PO; -FAMO20TA PO; -FAMO40TA3 PO; -LABE20TAB PO; -LEVO50TA5 PO; -PREN1CHW6 PO
[2024-09-18 11:49] LABS: FREE T4 1.37 NG/DL (0.89-1.76)
== END ==
LOC: M LAB 10:44
PROVIDERS: ATTEND Internal Medicine Endocrinology, Diabetes & Metabolism
DX: E06.3 Autoimmune thyroiditis (principal)

== ENCOUNTER 2024-10-02 21:20 | Emergency (ER) | payer BC ==
[2024-10-02] MEDS ORDERED: PREN1CHW6 PO (21:39)
[2024-10-02] MEDS ORDERED: LABE20TAB PO (21:39)
[2024-10-02] MEDS ORDERED: LEVO50TA5 PO (21:40)
[2024-10-02] MEDS ORDERED: ASPI81CH33 PO (21:41)
[2024-10-03] MEDS ORDERED: PERCOCET 5MG/325MG TAB PO ONE (00:05)
== END 2024-10-02 21:22 | disposition admitted as inpatient to this hospital (09) ==
LOC: M ED 21:20
DX: Z53.21 Procedure and treatment not carried out due to patient leaving prior to being seen by health care provider (principal)

== ENCOUNTER 2024-10-02 21:26 | Outpatient (CLI) | payer BC ==
[~2024-10-02] VITALS: Ht 165.1 cm; Wt 97.5 kg
[2024-10-02] MEDS ORDERED: LABE20TAB PO (21:39)
[2024-10-02] MEDS ORDERED: PREN1CHW6 PO (21:39)
[2024-10-02] MEDS ORDERED: LEVO50TA5 PO (21:40)
[2024-10-02] MEDS ORDERED: ASPI81CH33 PO (21:41)
[2024-10-02 21:43] VITALS: BP 155/90
[2024-10-02] MEDS ORDERED: HOME MED LIST COMPLETE! XX SCH (21:45)
[2024-10-02] MEDS ORDERED: FAMOTIDINE 20 MG TAB PO ONE (22:00)
[2024-10-02] MEDS: FAMOTIDINE 20 MG TAB PO ONE (22:05)
[2024-10-02 22:43] VITALS: BP 134/73
[2024-10-03 00:18] VITALS: BP 162/90
[2024-10-03] MEDS: PERCOCET 5MG/325MG TAB PO ONE (00:19)
[2024-10-03 00:37] LABS: PLATELET COUNT, AUTOMATED 148 10^3/uL (150-450)
[2024-10-03 01:03] LABS: ALT/SGPT 59.0 U/L (7.0-40); AST/SGOT 115.0 U/L (<34)
[2024-10-03 01:11] VITALS: BP 136/85
== END 2024-10-03 01:12 | disposition home or self-care (01) ==
LOC: M LDO 21:26
PROVIDERS: ATTEND Obstetrics & Gynecology
DX: O26.892 Other specified pregnancy related conditions, second trimester (principal); R10.13 Epigastric pain; O99.612 Diseases of the digestive system complicating pregnancy, second trimester; O09.812 Supervision of pregnancy resulting from assisted reproductive technology, second trimester; O10.012 Pre-existing essential hypertension complicating pregnancy, second trimester; O99.282 Endocrine, nutritional and metabolic diseases complicating pregnancy, second trimester; Z3A.23 23 weeks gestation of pregnancy; E03.9 Hypothyroidism, unspecified
CPT/HCPCS: 36415; 59025; 76705; 80076; 82150; 83690; 85027; G0463

== ENCOUNTER → 2024-10-17 | Outpatient (CLI) | payer BC ==
[~2024-10-17] MED LIST changes: +ASPI81CH33 PO; +LABE20TAB PO; +LEVO50TA5 PO; +PREN1CHW6 PO
[2024-10-17 11:08] LABS: FREE T4 1.44 NG/DL (0.89-1.76)
== END ==
LOC: M PLALAB 07:54
PROVIDERS: ATTEND Nurse Practitioner Family
DX: E06.3 Autoimmune thyroiditis (principal)

== ENCOUNTER → 2024-10-17 | Outpatient (CLI) | payer BC ==
[~2024-10-17] MED LIST changes: +FAMO20TA PO; +FAMO40TA3 PO; +URSO300C3 PO
[2024-10-17 10:43] LABS: PLATELET COUNT, AUTOMATED 177 10^3/uL (150-450)
[2024-10-17 11:05] LABS: GLUCOSE CHALLENGE TEST 1 HOUR 162 MG/DL (LESS THAN 140)
[2024-10-17 11:34] LABS: Trichomonas vaginalis (AMP) NOT DETECTED (NEGATIVE)
[2024-10-17 11:58] LABS: GC DNA AMPLIFICATION NEGATIVE (NEGATIVE)
[2024-10-17 15:05] LABS: HIV 1&2 SCREEN NEGATIVE (NEGATIVE)
[2024-10-17 15:13] LABS: HEPATITIS C VIRUS ABY INDEX < 0.02 INDEX (<0.8)
== END ==
LOC: M PLALAB 07:52
PROVIDERS: ATTEND Nurse Practitioner Family
DX: O99.282 Endocrine, nutritional and metabolic diseases complicating pregnancy, second trimester (principal); E06.3 Autoimmune thyroiditis
CPT/HCPCS: 36415; 82950; 84439; 84443; 85027; 86780; 86803; 86850; 86900; 86901; 87389; 87661; 87810; 87850; J2790

== ENCOUNTER 2024-10-28 02:43 | Outpatient (CLI) | payer BC ==
[~2024-10-28] VITALS: Ht 165.1 cm; Wt 93.4 kg
[~2024-10-28 02:43] MED LIST changes: -FAMO20TA PO; -FAMO40TA3 PO; -URSO300C3 PO
[2024-10-28 03:13] VITALS: BP 127/88
[2024-10-28] MEDS ORDERED: FAMO40TA3 PO (03:26)
[2024-10-28] MEDS ORDERED: FAMO20TA PO (03:39)
== END 2024-10-28 03:50 | disposition home or self-care (01) ==
LOC: M LDO 02:43
PROVIDERS: ATTEND Advanced Practice Midwife
DX: O99.612 Diseases of the digestive system complicating pregnancy, second trimester (principal); O10.012 Pre-existing essential hypertension complicating pregnancy, second trimester; O99.282 Endocrine, nutritional and metabolic diseases complicating pregnancy, second trimester; O09.812 Supervision of pregnancy resulting from assisted reproductive technology, second trimester; R12 Heartburn; E03.9 Hypothyroidism, unspecified; K80.20 Calculus of gallbladder without cholecystitis without obstruction; Z3A.27 27 weeks gestation of pregnancy
CPT/HCPCS: 59025; G0463

== ENCOUNTER → 2024-10-29 | Outpatient (CLI) | payer BC ==
[~2024-10-29] MED LIST changes: +FAMO20TA PO; +FAMO40TA3 PO
== END ==
LOC: M LAB 06:41
PROVIDERS: ATTEND Nurse Practitioner Family
DX: R73.02 Impaired glucose tolerance (oral) (principal)

== ENCOUNTER 2024-11-14 10:56 | Outpatient (CLI) | payer BC ==
[~2024-11-14] VITALS: Ht 165.1 cm; Wt 72.2 kg
[2024-11-14 11:19] VITALS: BP 125/78
[2024-11-14 11:47] VITALS: BP 132/84
[2024-11-14] MEDS ORDERED: URSO300C3 PO (12:04)
[2024-11-14 12:22] VITALS: BP 126/82
[2024-11-14 12:29] LABS: PLATELET COUNT, AUTOMATED 168 10^3/uL (150-450)
[2024-11-14] MEDS: FIORICET TAB PO ONE (12:50)
[2024-11-14 12:54] LABS: LDH LACTATE DEHYDROGENASE 181 U/L (120-246)
[2024-11-14 12:55] LABS: ALT/SGPT 67 U/L (7.0-40); AST/SGOT 35 U/L (<34); CREATININE FOR GFR 0.69 MG/DL (0.55-1.30); GLOMERULAR FILTRATION RATE > 90.0 (>60)
[2024-11-14 13:17] LABS: TOTAL PROTEIN,RANDOM URINE 12.5 MG/DL (0.0-14.0)
== END 2024-11-14 14:00 | disposition home or self-care (01) ==
LOC: M LDO 10:56
PROVIDERS: ATTEND Advanced Practice Midwife
DX: O36.8130 Decreased fetal movements, third trimester, not applicable or unspecified (principal); O26.893 Other specified pregnancy related conditions, third trimester; O09.813 Supervision of pregnancy resulting from assisted reproductive technology, third trimester; O10.013 Pre-existing essential hypertension complicating pregnancy, third trimester; O99.283 Endocrine, nutritional and metabolic diseases complicating pregnancy, third trimester; O09.293 Supervision of pregnancy with other poor reproductive or obstetric history, third trimester; R51.9 Headache, unspecified; E03.9 Hypothyroidism, unspecified; Z67.11 Type A blood, Rh negative; Z3A.29 29 weeks gestation of pregnancy
CPT/HCPCS: 36415; 59025; 82247; 82570; 83615; 84156; 84450; 84460; 84550; 85027; G0463

== ENCOUNTER 2024-11-21 15:01 | Outpatient (CLI) | payer BC ==
[~2024-11-21] VITALS: Ht 167.6 cm; Wt 91.7 kg
[~2024-11-21 15:01] MED LIST changes: +URSO300C3 PO
[2024-11-21] MEDS ORDERED: MORPHINE 4 MG/ML 1 ML VIAL IV ONE (15:15)
[2024-11-21] MEDS ORDERED: ONDANSETRON 4MG 2ML VIAL IV ONE (15:15)
[2024-11-21] MEDS ORDERED: LR 1,000 ML IV SCH (15:15)
[2024-11-21 15:17] VITALS: BP 134/76
[2024-11-21] MEDS ORDERED: HOME MED LIST COMPLETE! XX SCH (15:35)
[2024-11-21 16:08] LABS: PLATELET COUNT, AUTOMATED 165 10^3/uL (150-450)
[2024-11-21 16:28] LABS: ALT/SGPT 83 U/L (7.0-40); AST/SGOT 89 U/L (<34); CALCIUM LEVEL 8.0 MG/DL (8.5-10.1); CARBON DIOXIDE LEVEL 21 MMOL/L (20-31); CHLORIDE LEVEL 110 MMOL/L (98-107); CREATININE FOR GFR 0.61 MG/DL (0.55-1.30); GLOMERULAR FILTRATION RATE > 90.0 (>60); POTASSIUM SERUM 4.1 MMOL/L (3.5-5.1); SODIUM LEVEL 142 MMOL/L (136-145)
[2024-11-21 19:48] VITALS: BP 140/90
== END 2024-11-21 19:55 | disposition home or self-care (01) ==
LOC: M LDO 15:01
PROVIDERS: ATTEND Advanced Practice Midwife
DX: O26.613 Liver and biliary tract disorders in pregnancy, third trimester (principal); O09.813 Supervision of pregnancy resulting from assisted reproductive technology, third trimester; O10.013 Pre-existing essential hypertension complicating pregnancy, third trimester; O99.283 Endocrine, nutritional and metabolic diseases complicating pregnancy, third trimester; O99.613 Diseases of the digestive system complicating pregnancy, third trimester; K80.20 Calculus of gallbladder without cholecystitis without obstruction; E03.9 Hypothyroidism, unspecified; Z88.1 Allergy status to other antibiotic agents; Z3A.30 30 weeks gestation of pregnancy
CPT/HCPCS: 59025; 76705; 80053; 82150; 83690; 85027; 96374; 96375; G0463

== ENCOUNTER 2024-11-24 00:39 | Outpatient (CLI) | payer BC ==
[~2024-11-24] VITALS: Ht 167.6 cm; Wt 91.3 kg
[2024-11-24] VITALS (15 sets, daily range): BP systolic 117–161; BP diastolic 66–97; O2SAT 100
[2024-11-24] MEDS: MORPHINE 10 MG/ML 1 ML VIAL IV ONE (01:14)
[2024-11-24] MEDS ORDERED: HOME MED LIST COMPLETE! XX SCH ×2 (01:20→12:10)
[2024-11-24 01:40] LABS: BASO # 0.0 10^3/uL (0.0-0.2); BASO % 0.4 % (0.0-1.0); EOS # 0.1 10^3/uL (0.0-0.5); EOS % 0.7 % (0.0-3.0); LYMPH # 3.3 10^3/uL (1.5-5.0); LYMPH % 30.8 % (24.0-44.0); MONO # 1.0 10^3/uL (0.0-0.8); MONO % 8.9 % (2.0-8.0); NEUTROPHILS # 6.3 10^3/uL (1.5-8.5); NEUTROPHILS % 58.6 % (36.0-66.0); PLATELET COUNT, AUTOMATED 183 10^3/uL (150-450)
[2024-11-24 01:54] LABS: ALT/SGPT 128 U/L (7.0-40); AST/SGOT 144 U/L (<34); CALCIUM LEVEL 8.4 MG/DL (8.5-10.1); CARBON DIOXIDE LEVEL 24 MMOL/L (20-31); CHLORIDE LEVEL 105 MMOL/L (98-107); CREATININE FOR GFR 0.78 MG/DL (0.55-1.30); GLOMERULAR FILTRATION RATE > 90.0 (>60); LDH LACTATE DEHYDROGENASE 256 U/L (120-246); POTASSIUM SERUM 4.2 MMOL/L (3.5-5.1); SODIUM LEVEL 140 MMOL/L (136-145)
[2024-11-24 03:13] LABS: TOTAL PROTEIN,RANDOM URINE 12.2 MG/DL (0.0-14.0)
[2024-11-24] MEDS ORDERED: MORPHINE 10 MG/ML 1 ML VIAL IV PRN (04:10)
[2024-11-24] MEDS: LR 1,000 ML IV ONE (08:51)
[2024-11-24] MEDS: LR 1,000 ML IV SCH (08:52)
[2024-11-24] MEDS: LABETALOL 100 MG TAB PO SCH (08:52)
[2024-11-24] MEDS ORDERED: URSO300C3 PO (12:08)
[2024-11-24 17:21] LABS: ALT/SGPT 216 U/L (7.0-40); AST/SGOT 233 U/L (<34); CALCIUM LEVEL 7.5 MG/DL (8.5-10.1); CARBON DIOXIDE LEVEL 24 MMOL/L (20-31); CHLORIDE LEVEL 112 MMOL/L (98-107); CREATININE FOR GFR 0.66 MG/DL (0.55-1.30); GLOMERULAR FILTRATION RATE > 90.0 (>60); POTASSIUM SERUM 3.9 MMOL/L (3.5-5.1); SODIUM LEVEL 144 MMOL/L (136-145)
== END 2024-11-24 18:00 | disposition home or self-care (01) ==
LOC: M LDO 00:39
PROVIDERS: ATTEND Obstetrics & Gynecology
DX: O99.63 Diseases of the digestive system complicating the puerperium (principal); O09.813 Supervision of pregnancy resulting from assisted reproductive technology, third trimester; O10.013 Pre-existing essential hypertension complicating pregnancy, third trimester; O99.283 Endocrine, nutritional and metabolic diseases complicating pregnancy, third trimester; O09.293 Supervision of pregnancy with other poor reproductive or obstetric history, third trimester; K80.20 Calculus of gallbladder without cholecystitis without obstruction; E03.9 Hypothyroidism, unspecified; Z67.11 Type A blood, Rh negative; Z3A.30 30 weeks gestation of pregnancy
CPT/HCPCS: 36415; 59025; 76705; 80053; 82150; 82570; 83605; 83615; 83690; 84156; 84550; 85025; 96360; 96361; 96374; 96376; G0463

== ENCOUNTER → 2024-11-26 | Outpatient (CLI) | payer BC ==
[2024-11-26 10:56] LABS: FREE T4 1.29 NG/DL (0.89-1.76)
== END ==
LOC: M LAB 07:04
PROVIDERS: ATTEND Nurse Practitioner Family
DX: O99.282 Endocrine, nutritional and metabolic diseases complicating pregnancy, second trimester (principal)

== ENCOUNTER → 2024-12-05 | Outpatient (REF) | payer BC | LOC: M PLALAB 11:00 | PROVIDERS: ATTEND Student in an Organized Health Care Education/Training Program | DX: Z53.9 Procedure and treatment not carried out, unspecified reason (principal) ==

== ENCOUNTER → 2024-12-05 | Outpatient (CLI) | payer BC ==
[~2024-12-05] MED LIST changes: +COLA100C5 PO; +IBUP80TA PO; +NIFE1TAB52 PO; +PERCOCET PO
[2024-12-05 15:28] LABS: PLATELET COUNT, AUTOMATED 159 10^3/uL (150-450)
[2024-12-05 15:52] LABS: ALT/SGPT 24 U/L (7.0-40); AST/SGOT 17 U/L (<34); CALCIUM LEVEL 9.0 MG/DL (8.5-10.1); CARBON DIOXIDE LEVEL 23 MMOL/L (20-31); CHLORIDE LEVEL 106 MMOL/L (98-107); CREATININE FOR GFR 0.73 MG/DL (0.55-1.30); GLOMERULAR FILTRATION RATE > 90.0 (>60); POTASSIUM SERUM 4.3 MMOL/L (3.5-5.1); SODIUM LEVEL 138 MMOL/L (136-145)
== END ==
LOC: M PLALAB 11:34
PROVIDERS: ATTEND Student in an Organized Health Care Education/Training Program
DX: K80.20 Calculus of gallbladder without cholecystitis without obstruction (principal)

== ENCOUNTER 2024-12-09 01:05 | Outpatient (CLI) | payer BC ==
[~2024-12-09] VITALS: Ht 165.1 cm; Wt 89.8 kg
[~2024-12-09 01:05] MED LIST changes: -COLA100C5 PO; -IBUP80TA PO; -NIFE1TAB52 PO; -PERCOCET PO
[2024-12-09 01:35] VITALS: BP 131/82
[2024-12-09 01:48] VITALS: BP 131/82; TEMP 97.8
[2024-12-09] MEDS: MORPHINE 4 MG/ML 1 ML VIAL IV PRN (01:48)
[2024-12-09 02:02] LABS: PLATELET COUNT, AUTOMATED 156 10^3/uL (150-450)
[2024-12-09 02:15] LABS: ALT/SGPT 79 U/L (7.0-40); AST/SGOT 75 U/L (<34); CALCIUM LEVEL 8.0 MG/DL (8.5-10.1); CARBON DIOXIDE LEVEL 20 MMOL/L (20-31); CHLORIDE LEVEL 109 MMOL/L (98-107); CREATININE FOR GFR 0.67 MG/DL (0.55-1.30); GLOMERULAR FILTRATION RATE > 90.0 (>60); POTASSIUM SERUM 3.6 MMOL/L (3.5-5.1); SODIUM LEVEL 140 MMOL/L (136-145)
[2024-12-30] MEDS ORDERED: ASPI81CH33 PO (12:00)
== END 2024-12-09 03:41 | disposition home or self-care (01) ==
LOC: M LDO 01:05
PROVIDERS: ATTEND Advanced Practice Midwife
DX: O10.013 Pre-existing essential hypertension complicating pregnancy, third trimester (principal); O99.283 Endocrine, nutritional and metabolic diseases complicating pregnancy, third trimester; O99.63 Diseases of the digestive system complicating the puerperium; O09.813 Supervision of pregnancy resulting from assisted reproductive technology, third trimester; K80.20 Calculus of gallbladder without cholecystitis without obstruction; E03.9 Hypothyroidism, unspecified; Z3A.32 32 weeks gestation of pregnancy
CPT/HCPCS: 59025; 80053; 85027; 96374; G0463

== ENCOUNTER 2024-12-14 16:30 | Outpatient (CLI) | payer BC ==
[~2024-12-14] VITALS: Ht 165.1 cm; Wt 90.4 kg
[2024-12-14 16:57] VITALS: BP 134/75; O2SAT 98
[2024-12-14] MEDS: LACTATED RINGER'S 1000 ML IV STA (17:51)
[2024-12-14] MEDS ORDERED: HOME MED LIST COMPLETE! XX SCH (18:05)
[2024-12-14] MEDS: MORPHINE 4 MG/ML 1 ML VIAL IV ONE (18:17)
[2024-12-14 18:20] VITALS: BP 147/90
[2024-12-14 18:36] VITALS: BP 137/80
[2024-12-14 18:46] LABS: BASO # 0.0 10^3/uL (0.0-0.2); BASO % 0.2 % (0.0-1.0); EOS # 0.0 10^3/uL (0.0-0.5); EOS % 0.4 % (0.0-3.0); LYMPH # 2.2 10^3/uL (1.5-5.0); LYMPH % 27.3 % (24.0-44.0); MONO # 0.7 10^3/uL (0.0-0.8); MONO % 8.0 % (2.0-8.0); NEUTROPHILS # 5.1 10^3/uL (1.5-8.5); NEUTROPHILS % 63.6 % (36.0-66.0); PLATELET COUNT, AUTOMATED 145 10^3/uL (150-450)
[2024-12-14] MEDS: LR 1,000 ML IV SCH (18:51)
[2024-12-14 19:19] LABS: ALT/SGPT 70 U/L (7.0-40); AST/SGOT 89 U/L (<34); CALCIUM LEVEL 8.3 MG/DL (8.5-10.1); CARBON DIOXIDE LEVEL 23 MMOL/L (20-31); CHLORIDE LEVEL 106 MMOL/L (98-107); CREATININE FOR GFR 0.63 MG/DL (0.55-1.30); GLOMERULAR FILTRATION RATE > 90.0 (>60); POTASSIUM SERUM 4.0 MMOL/L (3.5-5.1); SODIUM LEVEL 141 MMOL/L (136-145)
== END 2024-12-14 20:16 | disposition home or self-care (01) ==
LOC: M LDO 16:30
PROVIDERS: ATTEND Specialist
DX: O99.613 Diseases of the digestive system complicating pregnancy, third trimester (principal); K80.20 Calculus of gallbladder without cholecystitis without obstruction; Z3A.33 33 weeks gestation of pregnancy
CPT/HCPCS: 36415; 59025; 80053; 83690; 85025; 96374; G0463

== ENCOUNTER 2024-12-22 12:36 | Outpatient (CLI) | payer BC ==
[~2024-12-22] VITALS: Ht 165.1 cm; Wt 93.2 kg
[2024-12-22 12:53] VITALS: BP 160/93
[2024-12-22 13:19] VITALS: BP 132/83
[2024-12-22] MEDS: MORPHINE 4 MG/ML 1 ML VIAL IV ONE (13:19)
[2024-12-22] MEDS: LR 1,000 ML IV ONE (13:22)
[2024-12-22 13:34] LABS: PLATELET COUNT, AUTOMATED 142 10^3/uL (150-450)
[2024-12-22 13:51] LABS: LDH LACTATE DEHYDROGENASE 180 U/L (120-246); TOTAL PROTEIN,RANDOM URINE < 6.0 MG/DL (0.0-14.0)
[2024-12-22 13:52] LABS: ALT/SGPT 24 U/L (7.0-40); AST/SGOT 24 U/L (<34); CREATININE FOR GFR 0.60 MG/DL (0.55-1.30); GLOMERULAR FILTRATION RATE > 90.0 (>60)
[2024-12-22] MEDS: LR 1,000 ML IV SCH (13:54)
[2024-12-30] MEDS ORDERED: ASPI81CH33 PO (12:00)
[2025-01-07] MEDS ORDERED: COLA100C5 PO ×2 (06:20→08:59)
[2025-01-07] MEDS ORDERED: PERCOCET PO (08:59)
[2025-01-07] MEDS ORDERED: IBUP80TA PO (08:59)
[2025-01-11] MEDS ORDERED: NIFE1TAB52 PO (10:14)
== END 2024-12-22 14:05 | disposition home or self-care (01) ==
LOC: M LDO 12:36
PROVIDERS: ATTEND Advanced Practice Midwife
DX: O99.283 Endocrine, nutritional and metabolic diseases complicating pregnancy, third trimester (principal); O99.613 Diseases of the digestive system complicating pregnancy, third trimester; O10.013 Pre-existing essential hypertension complicating pregnancy, third trimester; O09.813 Supervision of pregnancy resulting from assisted reproductive technology, third trimester; K80.20 Calculus of gallbladder without cholecystitis without obstruction; E03.9 Hypothyroidism, unspecified; Z3A.34 34 weeks gestation of pregnancy
CPT/HCPCS: 59025; 76816; 76820; 82247; 82570; 83615; 84156; 84450; 84460; 84550; 85027; 96374; G0463

== ENCOUNTER → 2024-12-22 | Outpatient (CLI) | payer BC | LOC: M WHC 07:07 | PROVIDERS: ATTEND Obstetrics & Gynecology | DX: O10.919 Unspecified pre-existing hypertension complicating pregnancy, unspecified trimester (principal); Z3A.34 34 weeks gestation of pregnancy ==

== ENCOUNTER → 2024-12-24 | Outpatient (REF) | payer BC | LOC: M SFHCWAGY 12:56 | PROVIDERS: ATTEND Obstetrics & Gynecology | DX: Z3A.35 35 weeks gestation of pregnancy (principal) ==

== ENCOUNTER → 2024-12-30 | Outpatient (REF) | payer BC ==
[2024-12-30 13:22] LABS: APPEARANCE, URINE CLEAR (CLEAR); BACTERIA, URINE AUTO 2+ (NEGATIVE); BILIRUBIN, URINE AUTO NEGATIVE (NEGATIVE); BLOOD, URINE BLOOD NEGATIVE (NEGATIVE); CALCIUM OXALATE CRYSTALS SMALL; GLUCOSE, URINE (UA) AUTO NEGATIVE (NEGATIVE); KETONE, URINE AUTO NEGATIVE (NEGATIVE); LEUKOCYTE ESTERASE, URINE AUTO 2+ (NEGATIVE); NITRITE, URINE AUTO NEGATIVE (NEGATIVE); PROTEIN, URINE AUTO NEGATIVE (NEGATIVE); RBC, URINE AUTO 1 /HPF (0-3); SPECIFIC GRAVITY URINE AUTO 1.003 (1.002-1.035); SQUAMOUS EPITHELIAL CELL UR AU 2 /HPF (0-6); UROBILINOGEN, URINE AUTO 0.2 mg/dL (0.0-2.0); WBC, URINE AUTO 3 /HPF (0-3)
== END ==
LOC: M PLALAB 11:03
PROVIDERS: ATTEND Obstetrics & Gynecology
DX: R30.0 Dysuria (principal)

== ENCOUNTER 2025-01-03 03:10 | Outpatient (CLI) | payer BC ==
[~2025-01-03] VITALS: Ht 165.1 cm; Wt 91.8 kg
[2025-01-03 03:33] VITALS: BP 132/88
[2025-01-03] MEDS ORDERED: HOME MED LIST COMPLETE! XX SCH (03:55)
[2025-01-03] MEDS: ONDANSETRON 4MG/2ML VIAL IV ONE (04:17)
[2025-01-03] MEDS: LR 1,000 ML IV SCH (04:17)
[2025-01-03] MEDS: MORPHINE 4 MG/ML 1 ML VIAL IV ONE (04:18)
[2025-01-03 06:19] VITALS: BP 140/86
[2025-01-07] MEDS ORDERED: COLA100C5 PO ×2 (06:20→08:59)
[2025-01-07] MEDS ORDERED: PERCOCET PO (08:59)
[2025-01-07] MEDS ORDERED: IBUP80TA PO (08:59)
[2025-01-11] MEDS ORDERED: NIFE1TAB52 PO (10:14)
== END 2025-01-03 08:00 | disposition home or self-care (01) ==
LOC: M LDO 03:10
PROVIDERS: ATTEND Advanced Practice Midwife
DX: O99.63 Diseases of the digestive system complicating the puerperium (principal); O10.013 Pre-existing essential hypertension complicating pregnancy, third trimester; O09.813 Supervision of pregnancy resulting from assisted reproductive technology, third trimester; K80.20 Calculus of gallbladder without cholecystitis without obstruction; Z3A.36 36 weeks gestation of pregnancy
CPT/HCPCS: 96374; 96375; G0463; J2405

== ENCOUNTER → 2025-02-03 | Outpatient (CLI) | payer BC ==
[~2025-02-03] MED LIST changes: +COLA100C5 PO; +IBUP80TA PO; -LABE100T6 PO; +LABE100T91 PO; +NIFE1TAB52 PO; +PERCOCET PO
== END ==
LOC: M EKG 11:59
PROVIDERS: ATTEND Anesthesiology
DX: Z01.818 Encounter for other preprocedural examination (principal)

== ENCOUNTER 2025-02-12 11:03 | Day surgery (SDC) | payer BC ==
[~2025-02-12] VITALS: Ht 165.1 cm; Wt 81.7 kg
[2025-02-12] MEDS ORDERED: LIDOCAINE 2% 100 MG/5 ML SDV (FOR ANES.) As Ordered ONE (11:13)
[2025-02-12] MEDS ORDERED: dexAMETHasone 4 MG/ML 1 ML VIAL As Ordered ONE (11:13)
[2025-02-12] MEDS ORDERED: ONDANSETRON 4MG/2ML VIAL As Ordered ONE (11:13)
[2025-02-12] MEDS ORDERED: SUGAMMADEX SODIUM 200 MG/2 ML VIAL As Ordered ONE (11:13)
[2025-02-12] MEDS ORDERED: ROCURONIUM BROMIDE 50MG/5ML VIAL As Ordered ONE (11:13)
[2025-02-12] MEDS: LR 1,000 ML IV SCH (11:40)
[2025-02-12] MEDS ORDERED: GABAPENTIN 300 MG CAP PO ONE (12:20)
[2025-02-12] MEDS: SCOPOLAMINE 1MG TRANSDERMAL PATCH TOP ONE (12:24)
[2025-02-12] MEDS ORDERED: MIDAZOLAM INJ 2 MG/2 ML VIAL As Ordered ONE (12:38)
[2025-02-12] MEDS: HEPARIN SOD 5000 UNITS/ML 1 ML VIAL/SYRINGE SQ ONE (12:50)
[2025-02-12] MEDS: INDOCYANINE GREEN 25 MG VIAL IV ONE (12:55)
[2025-02-12] MEDS: ceFAZolin SOD 2 GM IV ONCE IV ONE (13:07)
[2025-02-12] MEDS ORDERED: ACETAMINOPHEN 1000MG/100ML IV BAG As Ordered ONE (13:12)
[2025-02-12] MEDS ORDERED: HYDROmorphone HCL 2 MG/ML 1 ML VIAL As Ordered ONE (13:32)
[2025-02-12] MEDS ORDERED: KETOROLAC 30 MG/ML 1 ML VIAL As Ordered ONE (13:33)
[2025-02-12] MEDS: HYDROMORPHONE HCL 0.5 MG/0.5 ML SYRINGE IV PRN (14:45)
[2025-02-12] MEDS: ONDANSETRON 4MG/2ML VIAL IV PRN (14:51)
[2025-02-12] MEDS ORDERED: LR 1,000 ML IV ONE (18:05)
[2025-02-12 18:55] VITALS: BP 148/64; TEMP 98.5; O2SAT 100
== END 2025-02-12 19:05 | disposition home or self-care (01) ==
LOC: M SDC 11:03
PROVIDERS: ATTEND Surgery
DX: K80.10 Calculus of gallbladder with chronic cholecystitis without obstruction (principal); I10 Essential (primary) hypertension; E03.9 Hypothyroidism, unspecified; Z79.890 Hormone replacement therapy; Z79.899 Other long term (current) drug therapy
CPT/HCPCS: 47562; 81025; 88304; J0131; J0665; J0688; J1100; J1171; J1885; J2250; J2405; J3010; Q9968; S2900

== ENCOUNTER → 2025-03-09 | Outpatient (CLI) | payer BC, SELFPAY ==
[2025-03-09 14:10] LABS: FREE T4 1.5 NG/DL (0.89-1.76)
== END ==
LOC: M PLALAB 11:44
PROVIDERS: ATTEND Nurse Practitioner Family
DX: E06.3 Autoimmune thyroiditis (principal)